=== PATIENT | female | born 2005 | race Caucasian/White ===

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

== ENCOUNTER 2025-04-28 10:51 | Emergency (ER) | payer MEDICAID, SELFPAY ==
[2025-04-28 10:52] VITALS: BP 103/64; PULSE 87; RESP 17; TEMP 36.8; O2SAT 99; BMI 51.5
--- NOTE | 2025-04-28 11:06 | W.ED.ABDPA2 ---
HPI - Abdominal Pain General: Chief Complaint: Nausea/Vomiting/Diarrhea Stated Complaint: back pain, vomiting Time Seen by Provider: 04/28/25 10:53 History of Present Illness: 18-year-old male presents emergency room with complaint of back pain vomiting. No recent trauma. Relates most of her pain in the lower lumbar region. No difficulty with numbness pain or weakness into her lower extremities no saddle paresthesias no urinary retention or fecal incontinence. Denies dysuria urgency or frequency does say that when she urinated back pain was slightly worse. No fever sweats or chills. At times the pain will radiate down her legs but she has no loss of sensation or function of the lower extremities. No previous back injuries or surgeries. Associated Symptoms: Denies chills, dysuria and fever(s) Related Data Home Medications ?Medication ?Instructions ?Recorded ?Confirmed escitalopram oxalate 10 mg tablet 10 mg PO DAILY 04/28/25 04/28/25 ibuprofen 200 mg tablet (Advil) 200 mg PO Q6H PRN Fever Or Pain 04/28/25 04/28/25 omeprazole 20 mg-sodium 1 cap PO DAILY PRN Nausea 04/28/25 04/28/25 bicarbonate 1.1 gram capsule (Zegerid OTC) tacrolimus 0.1 % topical ointment See Rx Instructions .Route .COMPLEX 04/28/25 04/28/25 tirzepatide (weight loss) 2.5 2.5 mg SUBCUT Q7D 04/28/25 04/28/25 mg/0.5 mL subcutaneous pen injector (Zepbound) Previous Rx's ?Medication ?Instructions ?Recorded promethazine 25 mg tablet 25 mg PO Q6H PRN nausea and 04/28/25 vomiting #20 tabs Allergies Allergy/AdvReac Type Severity Reaction Status Date / Time No Known Allergies Allergy Verified 04/28/25 10:56 Review of Systems Const: Denies: fever(s) or chills Card: Denies: chest pain Resp: Denies: dyspnea GI: Denies: abdominal pain : Denies: dysuria, urinary frequency or urinary urgency Musc: Denies: neck pain or back pain Skin/Breast: Denies: rash Physical Exam Const: GENERAL APPEARANCE: cooperative ORIENTATION/CONSCIOUSNESS: Yes awake, Yes oriented to person, Yes oriented to place and Yes oriented to time HENMT: COMMON NORMALS: normocephalic, atraumatic and hearing grossly normal bilaterally HEAD & SCALP: normocephalic and atraumatic Resp: COMMON NORMALS: normal respiratory effort, No retractions, No use of accessory muscles and clear to auscultation bilaterally AUSCULTATION: clear to auscultation bilaterally Cardio: COMMON NORMALS: regular rate, regular rhythm and No murmurs present (Cardio) RATE: regular rate RHYTHM: regular rhythm GI: COMMON NORMALS: Soft to palpation and No hepatosplenomegaly present AUSCULTATION: Yes normoactive bowel sounds PALPATION: Yes Soft to palpation, No Tenderness to palpation present (GI), No Guarding due to palpation present (GI) and Yes No hepatosplenomegaly present Extremity: COMMON NORMALS: normal to inspection, capillary refill normal, no clubbing, cyanosis or edema, no calf tenderness and no pedal edema Neuro: SENSORIUM/ORIENTATION: Yes oriented to person, Yes oriented to place and Yes oriented to time Skin: COMMON NORMALS: no rashes or lesions noted GENERAL SKIN EXAM: no rashes or lesions noted Course Vital Signs: Vital signs: Vital Signs Temperature 97.8 F 04/28/25 14:23 Pulse Rate 89 04/28/25 14:23 Respiratory Rate 18 04/28/25 14:23 Blood Pressure 101/67 04/28/25 14:23 Pulse Oximetry 99 04/28/25 14:23 Oxygen Delivery Me thod Room Air 04/28/25 10:52 MDM - Abdominal Pain Medical Decision Making CBC and chemistries are normal. He did have a few red blood cells in his urine however the CT did not show any significant abnormality no sign of nephrolithiasis. CT did show signs of mesenteric lymphadenitis. Discharge patient home promethazine to use as needed Tylenol ibuprofen as needed for any worsening or change return to the emergency room. Follow-up with primary care to have your urine repeated sometime in the next few weeks Lab Data 04/28/25 11:09 04/28/25 11:09 Labs/Radiology: Radiology Impressions Abdomen/Pelvis CT 04/28/25 12:37 IMPRESSION: 1. No renal obstruction or perinephric stranding. 2. Normal appendix. 3. No GI tract obstruction. 4. There are a few very tiny central mesenteric and RIGHT lower quadrant lymph nodes. These can be noted with mesenteric adenitis. No pathologically enlarged nodes. Laboratory Results WBC 9.22 10^3/uL (4.5-13.0) 04/28/25 11:09 RBC 4.94 10^6/uL (3.85-5.65) 04/28/25 11:09 Hgb 12.60 g/dL (12.4-14.8) 04/28/25 11:09 Hct 41.0 % (36-47) 04/28/25 11:09 MCV 83.0 fl (85-98) L 04/28/25 11:09 MCH 25.5 pg (27-33) L 04/28/25 11:09 MCHC 30.7 g/dL (30-55) 04/28/25 11:09 RDW 15.6 % (12.1-15.1) H 04/28/25 11:09 Plt Count 431 10^3/cmm (157-399) H 04/28/25 11:09 MPV 10.6 fL (7.4-10.4) H 04/28/25 11:09 Neut % (Auto) 70.9 % 04/28/25 11:09 Lymph % (Auto) 20.3 % 04/28/25 11:09 [place] % (Auto) 7.0 % 04/28/25 11:09 Eos % (Auto) 1.5 % 04/28/25 11:09 Baso % (Auto) 0.2 % 04/28/25 11:09 Neut # (Auto) 6.53 10^3/uL (1.8-8.0) 04/28/25 11:09 Lymph # (Auto) 1.9 10^3/uL (1.5-6.5) 04/28/25 11:09 [place] # (Auto) 0.7 10^3/uL (0.2-0.9) 04/28/25 11:09 Eos # (Auto) 0.1 10^3/uL (0.0-0.8) 04/28/25 11:09 Baso # (Auto) 0.0 10^3/uL (0.0-0.1) 04/28/25 11:09 Nucleated RBC % (auto) 0 % 04/28/25 11:09 Nucleated RBCs # 0.0 /100WBC 04/28/25 11:09 Sodium 138 mmol/L (136-145) 04/28/25 11:09 Potassium 3.9 mmol/L (3.5-5.1) 04/28/25 11:09 Chloride 104 mmol/L (98-107) 04/28/25 11:09 Carbon Dioxide 22 mmol/L (22-29) 04/28/25 11:09 Anion Gap 15.9 (5-19) 04/28/25 11:09 BUN 10 mg/dL (6-20) 04/28/25 11:09 Creatinine 0.7 mg/dL (0.5-0.9) 04/28/25 11:09 GFR Calculation 107.8 mL/min (90-130) 04/28/25 11:09 Glucose 94 mg/dL (65-115) 04/28/25 11:09 Calculated Osmolality 285 mOsm/kg (285-295) 04/28/25 11:09 Calcium 9.0 mg/dL (8.5-10.5) 04/28/25 11:09 Total Bilirubin 0.3 mg/dL (0.15-1.2) 04/28/25 11:09 AST 18 U/L (0-32) 04/28/25 11:09 ALT 26 U/L (0-33) 04/28/25 11:09 Alkaline Phosphatase 86 U/L (35-105) 04/28/25 11:09 Total Protein 7.4 g/dL (6.6-8.7) 04/28/25 11:09 Albumin 4.2 g/dL (3.5-5.2) 04/28/25 11:09 Globulin 3.2 g/dL (1.3-4.6) 04/28/25 11:09 Lipase 32 U/L (13-60) 04/28/25 11:09 HCG, Qual Negative (Negative) 04/28/25 11:09 Urine Color Yellow (Yellow) 04/28/25 12:08 Urine Appearance Cloudy (CLEAR) A 04/28/25 12:08 Urine pH 6.0 (5-7) 04/28/25 12:08 Ur Specific [place] 1.012 (1.005-1.030) 04/28/25 12:08 Urine Protein Negative (Negative) 04/28/25 12:08 Urine Glucose (UA) Negative (Normal) 04/28/25 12:08 Urine Ketones Negative (Negative) 04/28/25 12:08 Urine Blood Non-haemolysed trace (Negative) 04/28/25 12:08 Urine Nitrate Negative (Negative) 04/28/25 12:08 Urine Bilirubin Negative (Negative) 04/28/25 12:08 Urine Urobilinogen 0.2 mg/dL (Negative) 04/28/25 12:08 Ur Leukocyte Esterase Trace (Negative) A 04/28/25 12:08 Urine RBC 6-10 /hpf (0-2) 04/28/25 12:08 Urine WBC 0-5 /hpf (0-5) 04/28/25 12:08 Ur Squamous Epith Cells 6-10 /hpf (0-5) 04/28/25 12:08 Amorphous Sediment Not Reportable 04/28/25 12:08 Urine Bacteria 4+ /hpf (NONE) H 04/28/25 12:08 Hyaline Casts 2.87 /lpf 04/28/25 12:08 All radiology interpretation(s) finalized by discharge Discharge Plan Discharge Patient Disposition: Home Clinical Impression: Acute mesenteric lymphadenitis Condition: Stable Prescriptions: New promethazine 25 mg tablet 25 mg PO Q6H PRN (Reason: nausea and vomiting) Qty: 20 0RF No Action tacrolimus 0.1 % ointment See Rx Instructions .ROUTE .COMPLEX Rx Instructions: apply a thin layer TO THE affected area(s) TWICE DAILY; RUB in gently and completely ibuprofen [Advil] 200 mg Tablet 200 mg PO Q6H PRN (Reason: Fever Or Pain) escitalopram oxalate 10 mg tablet 10 mg PO DAILY omeprazole-sodium bicarbonate [Zegerid OTC] 20-1.1 mg-gram Capsule 1 cap PO DAILY PRN (Reason: Nausea) Zepbound 2.5 mg/0.5 mL pen injector 2.5 mg SUBCUT Q7D Discharge Orders: Discharge ED (Routine); Ordered 04/28/25 Ordered By: Herberth Hernandez Referrals: Phong Smith MD [Primary Care Provider, Family Practice] Discharge Diet: Clear Liquid Discharge Activity: Increase activity as tolerated Patient Instructions: Mesenteric Adenitis (ED), Opioid Safety, Pain Management, Patient Portal & Joseph Instructions Activity Restrictions/Additional Instructions: [facility]. It is very important that you follow up as instructed or that you return to the Emergency Department should you have concerns or if your condition changes or worsens in any way. Emergency department visits are focused on emergent conditions, in some cases you may require further evaluation on an outpatient basis. You were seen in the emergency room with abdominal discomfort your white count was normal there were a few red blood cells in your urine however CT did not show any stones there was no sign of a bladder infection. CT did show some inflamed lymph nodes associated with a process called mesenteric lymphadenitis this is thought to be a self-limiting viral infection. No further intervention is needed recommend clear liquid diet advance as tolerated you are also given promethazine to use as needed for nausea. (Please note that included in your discharge packet is information concerning opioid safety and pain management. This information is given to all patients were discharged from the ER regardless of their discharge diagnosis or the medicines they usually take or are prescribed.) Print Language: Kinyarwanda Coding Level of Care Code ED Control Panel Builder for Tramaine Agudelo
[2025-04-28] MEDS: ondansetron 2 mg/ML SDV 2 mL 4 MG IVP (11:13)
[2025-04-28 11:14] LABS: Hematocrit 41.0 % (36-47); Hemoglobin 12.60 g/dL (12.4-14.8); Mean Corpuscular HGB Conc 30.7 g/dL (30-55); Mean Corpuscular Hemoglobin 25.5 pg (27-33); Mean Corpuscular Volume 83.0 fl (85-98); Nucleated Red Blood Cells % 0 %; Platelet Count 431 10^3/cmm (157-399); Red Blood Count 4.94 10^6/uL (3.85-5.65); White Blood Count 9.22 10^3/uL (4.5-13.0)
[2025-04-28] MEDS: orphenadrine 30 mg/mL Inj 2 mL 60 MG IM (11:23)
[2025-04-28] MEDS: methylPREDNISolone sod succ 125 mg/2 mL INJ IVP (11:24)
[2025-04-28 11:26] LABS: HCG, Serum Qual Negative (Negative)
[2025-04-28 11:32] LABS: Alanine Aminotransferase 26 U/L (0-33); Albumin Level 4.2 g/dL (3.5-5.2); Alkaline Phosphatase 86 U/L (35-105); Anion Gap 15.9 (5-19); Aspartate Amino Transferase 18 U/L (0-32); Blood Urea Nitrogen 10 mg/dL (6-20); Calcium 9.0 mg/dL (8.5-10.5); Carbon Dioxide 22 mmol/L (22-29); Chloride 104 mmol/L (98-107); Globulin 3.2 g/dL (1.3-4.6); Glucose 94 mg/dL (65-115); Lipase 32 U/L (13-60); Osmolality Calculated 285 mOsm/kg (285-295); Potassium 3.9 mmol/L (3.5-5.1); Sodium 138 mmol/L (136-145); Total Protein 7.4 g/dL (6.6-8.7)
[2025-04-28 12:20] LABS: Glucose Urine UA Negative (Normal); Nitrate Urine Negative (Negative); Specific Gravity, Urine 1.012 (1.005-1.030)
--- OUTSIDE RECORDS SUMMARY | 2025-04-28 12:20 | XMS_ITS | Data Portability ---
Author Organization NISA Boyce [facility], [place], [facility] Address [address] [address] Care Team Providers Care Mastic Man Name Role Phone RAUL SMITH Primary Care Provider Assessment Encounter Date Assessment Date Assessment LastModified by Organization Details LastModified Time 04/07/2025 04/07/2025 19-year-old female with a history of atopic dermatitis presenting with a dry spot on the left eyelid and a request for weight loss medication. The dry spot resembles atopic dermatitis but is localized. Given the patient's elevated body mass index, exploring non-injectabl e weight loss solutions is recommended. [email or web address] Not available 04/07/2025 10:07:20 Plan of Treatment Reminders Order Date Submit Date Provider Last Modified By Organization Details Last Modified Time Details Appointments OFFICE VISIT 15 2024 03:00P M Raul Smith MD Not available Not available Not available Lab urinalysi s, dipstick 2024 025 [facility] [address] [place] [address], [address], 01/24/2025 18:43:51 culture, urine 2024 025 [employer] [facility], [address] [place] [address] [address], [place], [address], 01/27/2025 03:07:48 culture, urine 2024 025 [employer] [facility], [address] [place] [address] 248, [address], [place], [address], 01/21/2025 12:25:30 urinalysi s, dipstick 2024 025 [email or web address] [facility] ([facility]), [address] [place], [address], 01/17/2025 17:36:41 streptoco ccus group A Ag screen [address] [facility] ([facility]), [address] [place], [address], 12/30/2024 14:10:13 CBC 2024 025 [facility], [address] [facility], [facility] 1, [place], [address], 09/07/2024 17:41:09 CMP, serum or plasma 2024 025 [employer] [facility], [address] [place] [address] 248, [address], [place], [address], 09/09/2024 05:24:29 lipid panel, serum 2024 025 [employer] [facility], [address] [place] [address] 248, [address], [place], [address], 09/09/2024 05:24:28 Referral ophthalmic nurse referral 2024 025 [email or web address] Not available 09/19/2024 17:13:11 Procedures None recorded. Surgeries None recorded. Imaging None recorded. Medication Orders Zepbound 2.5 mg/0.5 mL subcutane ous pen injector 2024 025 [facility] [place], [address] [place], [address], 04/07/2025 17:23:26 Elidel 1 % topical cream 2024 [facility] [place], [address] [place], [address], 04/07/2025 10:09:53 Bactrim DS 800 mg-160 mg tablet 2024 [id number] [address], [address], 02/07/2025 05:01:30 nitrofura ntoin monohydra te/macroc rystals 100 mg capsule 2024 [id number], [address] [facility] [place], [address], 01/24/2025 18:27:38 fluticaso ne propionat e 50 mcg/actua tion nasal spray,brandyn pension 2024 [facility], [address], [place], [address], 04/07/2025 09:48:14 cetirizin e 10 mg tablet 2024 [facility] 15, [address], [place], [address], 04/07/2025 09:47:52 escitalop matthew 10 mg tablet 2024 [facility], [address], [place], [address], 09/07/2024 17:04:50 Patient TargetsNo targets recorded. Patient Instructions Encounter Date Encounter Id Patient Instructions Last Modified By Organization Details Last Modified Time 04/07/2025 [id number] - Apply Elidel t o the dry spot on your eyelid twice a day. Be careful not to get it in your eye. - Start Zepbound injections at 2.5 mg once a week. Monitor for any side effects like nausea or stomach upset. - Follow up in one month to see how the treatments are working. [email or web address] Not available 04/07/2025 10:07:22 Discussed the us e of Elidel for the eyelid condition and weight loss strategies. Emphasized cautious application of Elidel to avoid ocular exposure. For weight management, I explained the benefits and side effects of Zepbound, including potential nausea and gastrointestinal symptoms. The patient was informed about the gradual dose increase and the effectiveness of this approach compared to oral alternatives. A follow-up appointment was recommended in a month to assess progress and adjust treatment as necessary. 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 gy to food Referring Physician: Raul Smith, Family Medicine, Encounter Date: 09/07/2024 Results Created Date Observation Date Name Description Value Unit Range Abnormal Flag Note LastModifiedBy Organization Detail LastModifiedTime 09/08/1909/07/2024 CBC WBC 9.0 x10 4.0-10 .5 Not Available [facility] [address], [place], [address], 09/07/2024 17:41:09 09/08/19 25 09/07/2024 CBC RBC 4.47 x10 3.50-5 .50 Not Available [facility] [address], [place], [address], 09/07/2024 17:41:09 09/08/19 25 09/07/2024 CBC HGB 12.3 g/dL 12.0-1 6.0 Not Available [facility] [address], [place], [address], 09/07/2024 17:41:09 09/08/19 25 09/07/2024 CBC HCT 37.0 % 37.0-4 7.0 Not Available [facility] [address], [place], [address], 09/07/2024 17:41:09 09/08/1909/07/2024 CBC MCV 82.7 fL 80.0-9 9.9 Not Available [facility] [address] [facility] 1, [place], [address], 09/07/2024 17:41:09 09/08/19 25 09/07/2024 CBC MCH 27.4 pg 27.0-3 2.0 Not Available [facility] [address] [facility], [place], [address], 09/07/2024 17:41:09 09/08/1909/07/2024 CBC MCHC 33.1 g/dL 32.0-3 6.0 Not Available [facility] [address] [facility] 1, [place], [address], 09/07/2024 17:41:09 09/08/1909/07/2024 CBC RDW 15.2 % 11.5-1 4.5 high Not Available [facility] [address] [facility] 1, [place], [address], 09/07/2024 17:41:09 09/08/1909/07/2024 CBC plt 420.6 x10 140.0- 451.0 Not Available [facility] [address] [place] [facility], [place], [address], 09/07/2024 17:41:09 09/08/1909/07/2024 CBC lymphocytes % 35.0 % 20.0-5 0.0 Not Available [facility] [address] [place] [address] [facility] 1, [place], [address], 09/07/2024 17:41:09 09/08/1909/07/2024 CBC granulcytes % 53.7 % 30.0-7 0.0 Not Available [facility] [address] [facility] 1, [place], [address], 09/07/2024 17:41:09 09/08/19 25 09/07/2024 CBC monocytes % 9.0 % 2.0-16 .0 Not Available [facility] [address] [facility] 1, [place], [address], 09/07/2024 17:41:09 09/08/19 25 09/07/2024 CBC granulcytes# 4.8 x10 Not Kathia ilable [facility] [address] [facility] 1, [place], [address], 09/07/2024 17:41:09 09/08/19 25 09/07/2024 CBC lymphocytes # 3.1 x10 Not Available [facility] [address] [facility] 1, [place], [address], 09/07/2024 17:41:09 09/08/19 25 09/07/2024 CBC monocytes # 0.8 x10 Not Avai lable [facility] [address] [facility] 1, [place], [address], 09/07/2024 17:41:09 09/08/19 25 09/09/2024 LIPID PANEL , STAND BLAINE cholesterol, total 166 mg/dL <170 normal Not Available [facility] [address] [place], [address], 09/09/2024 05:24:28 09/08/19 25 09/09/2024 LIPID PANEL , STAND BLAINE HDL cholesterol 50 mg/dL >45 normal Not Available [facility] [email or web address] [facility] [address] [place], [address], 09/09/2024 05:24:28 09/08/19 25 09/09/2024 LIPID PANEL , STAND BLAINE triglyceride s 121 mg/dL <90 high Not Available [facility] [address] [place], [address], 09/09/2024 05:24:28 09/08/19 25 09/09/2024 LIPID PANEL , STAND BLAINE LDL-choleste rol 94 mg/dL _(kiki c) <110 normal LDL-C is now calcu lated using the Stefany n-Hop kins chuck russell n, which is a valid ated novel metho d provi ding saad r accur acy than the Fried juliann equat ion in the estim ation of LDL-C . Stefany sosa SS et al. SONIA. 2013; 310(1 9): 2061- 2068 (http ://ed ucati on.Qu eParachute. com/f aq/FA Q164) Not Available [employer] [address], [address], 09/09/2024 05:24:28 09/08/19 25 09/09/2024 LIPID PANEL , STAND BLAINE chol/HDLC ratio 3.3 (calc ) <5.0 normal Not Available [address], [address], 09/09/2024 05:24:28 09/08/1909/09/2024 LIPID PANEL , STAND BLAINE non HDL cholesterol 116 mg/dL _(kiki c) <120 normal For patie nts with diabe vishal plus 1 major ASCVD risk facto r, treat ing to a non-H DL-C goal of <100 mg/dL (LDL- C of <70 mg/dL ) is consi dered a thera peazra c optio n. Not Available [address], [address], 09/09/2024 05:24:28 09/08/1909/09/2024 COMPR EHENS MAHI METAB OLIC PANEL glucose 83 mg/dL 65-99 normal Fasti ng refer ence inter cuate Not Available [facility] [address] [place] [address] [place], [address], 09/09/2024 05:24:29 09/08/19 25 09/09/2024 COMPR EHENS MAHI METAB OLIC PANEL urea nitrogen (BUN) 10 mg/dL 7-20 normal Not Available [address], [address], 09/09/2024 05:24:29 09/08/19 25 09/09/2024 COMPR EHENS MAHI METAB OLIC PANEL creatinine 0.58 mg/dL 0.50-0 .96 normal Not Available [address], [address], 09/09/2024 05:24:29 09/08/19 25 09/09/2024 COMPR EHENS MAHI METAB OLIC PANEL eGFR 134 mL/mi n/1.7 3m2 > or = 60 normal Not Available [address], [address], 09/09/2024 05:24:29 09/08/19 25 09/09/2024 COMPR EHENS MAHI METAB OLIC PANEL BUN/creatini ne ratio SEE NOTE: (calc ) 6-22 Not Repor ant: BUN and Creat inine are withi n refer ence range . Not Available [address], [address], 09/09/2024 05:24:29 09/08/19 25 09/09/2024 COMPR EHENS MAHI METAB OLIC PANEL sodium 138 mmol/ L 135-14 6 normal Not Available [address], [address], 09/09/2024 05:24:29 09/08/19 25 09/09/2024 COMPR EHENS MAHI METAB OLIC PANEL potassium 4.2 mmol/ L 3.8-5. 1 normal Not Available [address], [address], 09/09/2024 05:24:29 09/08/19 25 09/09/2024 COMPR EHENS MAHI METAB OLIC PANEL chloride 103 mmol/ L 98-110 normal Not Available [address], [address], 09/09/2024 05:24:29 09/08/19 25 09/09/2024 COMPR EHENS MAHI METAB OLIC PANEL carbon dioxide 28 mmol/ L 20-32 normal Not Available [address], [address], 09/09/2024 05:24:29 09/08/19 25 09/09/2024 COMPR EHENS MAHI METAB OLIC PANEL calcium 9.4 mg/dL 8.9-10 .4 normal Not Available [address], [address], 09/09/2024 05:24:29 09/08/19 25 09/09/2024 COMPR EHENS MAHI METAB OLIC PANEL protein, total 7.1 g/dL 6.3-8. 2 normal Not Available [address], [address], 09/09/2024 05:24:29 09/08/19 25 09/09/2024 COMPR EHENS MAHI METAB OLIC PANEL albumin 4.3 g/dL 3.6-5. 1 normal Not Available [address], [address], 09/09/2024 05:24:29 09/08/19 25 09/09/2024 COMPR EHENS MAHI METAB OLIC PANEL globulin 2.8 g/dL_ (calc ) 2.0-3. 8 normal Not Available [address], [address], 09/09/2024 05:24:29 09/08/19 25 09/09/2024 COMPR EHENS MAHI METAB OLIC PANEL albumin/glob ulin ratio 1.5 (calc ) 1.0-2. 5 normal Not Available [address], [address], 09/09/2024 05:24:29 09/08/19 25 09/09/2024 COMPR EHENS MAHI METAB OLIC PANEL bilirubin, total 0.3 mg/dL 0.2-1. 1 normal Not Available [place] [address] [place], [address], 09/09/2024 05:24:29 09/08/19 25 09/09/2024 COMPR EHENS MAHI METAB OLIC PANEL alkaline phosphatase 73 U/L 36-128 normal Not Available [place] [address] [place], [address], 09/09/2024 05:24:29 09/08/19 25 09/09/2024 COMPR EHENS MAHI METAB OLIC PANEL AST 23 U/L 12-32 normal Not Available [place] [address] [address] [place], [address], 09/09/2024 05:24:29 09/08/19 25 09/09/2024 COMPR EHENS MAHI METAB OLIC PANEL ALT 45 U/L 5-32 high Not Available [address], [address], 09/09/2024 05:24:29 12/31/19 25 12/30/2024 strep tococ cus group A Ag scree n Strep negati ve Not Available [facility] ([facility]) [address] [place], [address], 12/30/2024 13:58:37 01/18/20 25 01/21/2025 CULTU RE, URINE , ROUTI NE culture, urine, routine SEE NOTE abnormal CULTU RE, URINE , ROUTI NE Micro Numbe r: [id number] Test Statu s: Final Speci men Sourc e: Urine , clean catch Speci men Quali ty: Adequ ate Resul t: Great er than 100,0 00 CFU/m L of Prote us mirab ilis COMME NT: Addit ional non-p redom inati ng organ ism(s ) isola ant. These organ isms, commo nly found on exter nal and inter nal genit jermaine, are consi dered colon izers . No furth er testi ng perfo rmed. P.alessia abili s ----- ----- ----- - INT EMILY AMOX/ CLAVU LANAT E S <=2 AMP/S ULBAC BAUTISTA S <=2 CEFAZ SEVERINO I 4 CEFEP YANN S <=0.1 2 CEFTA ZIDIM E S <=0.5 CEFTR IAXON E S <=0.2 5 CIPRO FLOXA SUELLEN S <=0.0 6 GENTA MICIN S <=1 LEVOF LOXAC IN S <=0.1 2 MEROP ENEM S <=0.2 5 NITRO FURAN TOIN R 128 PIP/T AZOBA CTAM S <=4 TRIME THOPR IM/HOLLAND LFA S <=20 S = Susce ptibl e I = Inter media te R = Resis tant NS = Not susce ptibl e SDD = Susce ptibl e Dose Depen dent * = Not Teste d NR = Not Repor ant NN = See Thera py Comme nts Not Available [facility] [address] [place], [address], 01/21/2025 12:25:30 01/18/20 25 01/17/2025 urina lysis , dipst ick Leukocytes Trace Not Available [facility] ([facility]) [address] [place] [address], [address], 01/17/2025 17:18:12 01/18/20 25 01/17/2025 urina lysis , dipst ick Nitrite negati ve Not Available [facility] ([facility]) [address] [place] [address], [address], 01/17/2025 17:18:12 01/18/20 25 01/17/2025 urina lysis , dipst ick Urobilinogen .2 Not Available [facility] ([facility]) [address] [place], [address], 01/17/2025 17:18:12 01/18/20 25 01/17/2025 urina lysis , dipst ick Protein Trace Not Available [facility] ([facility]) [address] [place], [address], 01/17/2025 17:18:12 01/18/20 25 01/17/2025 urina lysis , dipst ick pH 7.5 Not Available [facility] ([facility]) [address] [place], [address], 01/17/2025 17:18:12 01/18/20 25 01/17/2025 urina lysis , dipst ick Blood Modera te Not Available [facility] ([facility]) [address] [place], [address], 01/17/2025 17:18:12 01/18/20 25 01/17/2025 urina lysis , dipst ick Specific [place] 1.020 Not Available [facility] ( [facility]) [address] [place], [address], 01/17/2025 17:18:12 01/18/20 25 01/17/2025 urina lysis , dipst ick Ketone Negati ve Not Available [facility] ([facility]) [address] [place], [address], 01/17/2025 17:18:12 01/18/20 25 01/17/2025 urina lysis , dipst ick Bilirubin Negati ve Not Available [facility] ([facility]) [address] [place], [address], 01/17/2025 17:18:12 01/18/20 25 01/17/2025 urina lysis , dipst ick Glucose Negati ve Not Available [facility] ([facility]) [address] [place], [address], 01/17/2025 17:18:12 01/25/20 25 01/24/2025 urina lysis , dipst ick Leukocytes Modera te Not Available [facility] ([facility]) [address] [place], [address], 01/24/2025 18:21:45 01/25/20 25 01/24/2025 urina lysis , dipst ick Nitrite negati ve Not Available [facility] ([facility]) [address] [place], [address], 01/24/2025 18:21:45 01/25/20 25 01/24/2025 urina lysis , dipst ick Urobilinogen .2 Not Available [facility] ([facility]) [address] [place], [address], 01/24/2025 18:21:45 01/25/20 25 01/24/2025 urina lysis , dipst ick Protein 100 Not Available [facility] ([facility]) [address] [place], [address], 01/24/2025 18:21:45 01/25/20 25 01/24/2025 urina lysis , dipst ick pH 6.5 Not Available [facility] ([facility]) [address] [place], [address], 01/24/2025 18:21:45 01/25/20 25 01/24/2025 urina lysis , dipst ick Blood Large Not Available [facility] ([facility]) [address] [place], [address], 01/24/2025 18:21:45 01/25/20 25 01/24/2025 urina lysis , dipst ick Specific [place] 1.020 Not Available [facility] ( [facility]) [address] [place], [address], 01/24/2025 18:21:45 01/25/20 25 01/24/2025 urina lysis , dipst ick Ketone Negati ve Not Available [facility] ([facility]) [address] [place], [address], 01/24/2025 18:21:45 01/25/20 25 01/24/2025 urina lysis , dipst ick Bilirubin Negati ve Not Available [facility] ([facility]) [address] [place], [address], 01/24/2025 18:21:45 01/25/20 25 01/24/2025 urina lysis , dipst ick Glucose Negati ve Not Available [facility] ([facility]) [address] [place], [address], 01/24/2025 18:21:45 01/25/20 25 01/24/2025 urina lysis , dipst ick Appearance Clear Not Available [facility] ( [facility] [address] [place], [address], 01/24/2025 18:21:45 01/25/20 25 01/24/2025 urina lysis , dipst ick Color Pale Yellow Not Available [facility] ([facility]) [address] [place], [address], 01/24/2025 18:21:45 01/26/20 25 01/27/2025 CULTU RE, URINE , ROUTI NE culture, urine, routine SEE NOTE CULTU RE, URINE , ROUTI NE Micro Numbe r: [id number] Test Statu s: Final Speci men Sourc e: Urine Speci men Quali ty: Adequ ate Resul t: Mixed genit al herminia isola ant. These super ficia l bacte eduardo are not indic ative of a urina ry tract infec tion. No furth er organ ism ident ifica tion is warra nted on this speci men. If clini audi indic ated, recol lect clean -catc h, mid-s tream urine and trans abisai immed iatel y to Urine Cultu re Trans port Tube. Not Available [address] [address] [place], [address], 01/27/2025 03:07:48 Result Notes None recorded. Problems Name Problem SNOMED Code Status Onset Date Resolution Date Notes Provider Name and Address Organization Details Recorded Time Anxiety disorder 471196757 Active 2023 [employer] rodriguez [facility], KatieL[facility] 12:36:01 Major depressi ve disorder 613313869 Active 2023 [employer] [facility], KatieLJairoC[facility] 12:37:15 Low back pain 031073584 Active 2023 [employer] [facility], KatieLJ[facility] 12:36:40 Attentio n deficit hyperact ivity disorder 042094990 Active 2023 [employer] rodriguez [facility], L.L.CJairo 12:36:19 Mood swings 01122567 Completed 202307/30/2024 Deyanira rodriguez [facility], KatieLJ[facility] 5 16:32:12 Carpal tunnel syndrome of right wrist 04839726425 9108 Completed 202307/30/2024 Deyanira rodriguez [facility], KatieLJairoC[facility] 16:31:36 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 16:31:57 Allergy to food 627450023 Active 2024 Raul Smith MD [address] [place] [address], [address], [facility] 17:02:46 Allergic rhinitis 32279084 Active 2024 Raul Smith MD [address] [place] [address], [address], [facility] 17:02:53 Insertio nal Achilles tendinop athy 747387983 Active 2024 Raul Smith MD [address] [place] [address], [address], [facility] 17:08:00 Atopic dermatit is 02956685 Active 2024 Raul Smith MD [address] [place] [address], [address], [facility] 5 10:02:36 Body mass index 40+ - severely obese 225876316 Active 2024 Raul Smith MD [address] [place] [address], [address], [facility] 10:03:41 Problem Notes None recorded. Medical Equipment None Reported. Allergies Allergen ID Allergen Name Allergen Category Reaction Reaction Severity Criticality Documentation Date Start Date Code Code System Note Provider Name and Address Organization Details Recorded Time 78106 shrimp allergeni c extract food Not available Not available Not available 07/18/2024 49628 2 RxNorm RAF rodriguez, [facility] 12:38:31 No known drug allergies Medications Name Sig Start Date Stop Date Status Note LastModified by Organization Details LastModified Time cetirizine 10 mg tablet Take 1 tablet every day by oral route. 04/07 completed Not Available Not Available Not Available azithromyc in 250 mg tablet TAKE 2 TABLETS BY MOUTH ON DAY 1, AND THEN TAKE 1 TABLET BY MOUTH ONCE A DAY ON DAY 2 THROUGH DAY 5 07/27 completed Not Available Not Available Not Available meloxicam 15 mg tablet Take 1 tablet every day by oral route. 05/06 completed Not Available Not Available Not Available Effexor XR 37.5 mg capsule,ex tended release Take 1 capsule every day by oral route. 05/06 completed pt states that she does not like the way they work Not Available Not Available Not Available Elidel 1 % topical cream APPLY A THIN LAYER TO THE AFFECTED AREA(S) BY TOPICAL ROUTE 2 TIMES PER DAY ; RUB IN GENTLY AND COMPLETE LY 2024 active Not Available Not Available Not Avai lable meloxicam 7.5 mg tablet TAKE 1 TABLET BY MOUTH ONCE DAILY NEEDED 05/06 completed Not Available Not Available Not Available amoxicilli n 875 mg tablet Take 1 tablet every 12 hours by oral route for 10 days. 07/07 completed Not Available Not Available Not Available tacrolimus 0.1 % topical ointment APPLY A THIN LAYER TO THE AFFECTED AREA(S) BY TOPICAL ROUTE 2 TIMES PER DAY ; RUB IN GENTLY AND COMPLETE LY 2024 active Not Available Not Available Not Avai lable hydroxyzin e HCl 25 mg tablet Take 0.5 tablets 3 times a day by oral route as needed. 05/06 completed Not Available Not Available Not Available fluticason e propionate 50 mcg/actuat ion nasal spray,susp ension USE 1 SPRAY(S) IN EACH NOSTRIL ONCE DAILY 04/07 completed Not Available Not Available Not Available naproxen 500 mg tablet TAKE 1 TABLET BY MOUTH TWICE DAILY 09/07 completed Not Available Not Available Not Available Bactrim DS 800 mg-160 mg tablet Take 1 tablet every 12 hours by oral route for 7 days. 02/07 completed Not Available Not Available Not Available escitalopr am 10 mg tablet TAKE 1 TABLET BY MOUTH EVERY DAY active Not Available Not Available No t Available nitrofuran toin monohydrat e/macrocry stals 100 mg capsule TAKE 1 CAPSULE BY MOUTH EVERY 12 HOURS FOR 5 DAYS active Not Available Not Available No t Available Zepbound 2.5 mg/0.5 mL subcutaneo us pen injector inject 2.5mg SUBCUTAN EOUSLY every week active Not Available Not Available No t Available Vitals Date Recorded Body height Body mass index (BMI) Body mass index (BMI) [Percentile] Per age and sex Body weight Body temperature Respiratory rate Heart rate Oxygen saturation Oxygen saturation in Arterial blood by Pulse oximetry Systolic And Diastolic Provider Name and Address Organization Details Last Updated DateTime 5 163.83 cm 47 kg/m2 99.83 % 788438. 08 g 97.6 [degF] 18 /min 82 /min 99 % 99 % 112/66 mm[Hg] Igor Smith [facility] 5 16:43:08 Date Recorded Body height Body mass index (BMI) Body mass index (BMI) [Percentile] Per age and sex Body weight Body temperature Heart rate Oxygen saturation Oxygen saturation in Arterial blood by Pulse oximetry Systolic And Diastolic Provider Name and Address Organization Details Last Updated DateTime 5 163.83 cm 49.9 kg/m2 99.93 % 490991. 55 g 98.6 [degF] 102 /min 99 % 99 % 122/76 mm[Hg] Carleen Eckert [facility] 5 14:00:46 Date Recorded Body height Body mass index (BMI) [Percentile] Per age and sex Body mass index (BMI) Body weight Respiratory rate Oxygen saturation Oxygen saturation in Arterial blood by Pulse oximetry Heart rate Body temperature Systolic And Diastolic Provider Name and Address Organization Details Last Updated DateTime 5 163.83 cm 99.94 % 50.2 kg/m2 783597. 93 g 16 /min 98 % 98 % 104 /min 98.4 [degF] 124/80 mm[Hg] LILLY TAVERAS [facility] 5 17:25:03 Date Recorded Body height Body mass index (BMI) [Percentile] Per age and sex Body mass index (BMI) Body weight Oxygen saturation Oxygen saturation in Arterial blood by Pulse oximetry Heart rate Body temperature Systolic And Diastolic Provider Name and Address Organization Details Last Updated DateTime 163.83 cm 99.92 % 49.5 kg/m2 685488. 56 g 99 % 99 % 97 /min 98.7 [degF] 128/84 mm[Hg] Nanci Danielsabran [facility] LJairoLJairoCJairo 18:31:44 Date Recorded Body height Body mass index (BMI) [Percentile] Per age and sex Body mass index (BMI) Body weight Body temperature Oxygen saturation Oxygen saturation in Arterial blood by Pulse oximetry Heart rate Systolic And Diastolic Provider Name and Address Organization Details Last Updated DateTime 163.83 cm 99.94 % 50.7 kg/m2 434206. 71 g 98.1 [degF] 99 % 99 % 89 /min 128/82 mm[Hg] [facility] L[facility]LJ[facility] 09:41:38 Social History Question Answer Notes LastModified by [email or web address] ion Details LastModified Time Tobacco Smoking Status Never Smoker [facility] 04/07/2025 09:48:15 Are You Blind Or Do You Have Difficulty Seeing? No Information not available 07/15/2023 What Is Your Level Of Caffeine Consumption? Moderate Information not available 07/15/2023 Are You Deaf Or Do You Have Serious Difficulty Hearing? No Information not available 07/15/2023 What Type Of Diet Are You Following? REGULAR Information not available 07/15/2023 Which Of Your Hands Is Dominant? Right Information not available 07/15/2023 What Was The Date Of Your Most Recent Tobacco Screening? 04/07/2025 [email or web address] Information not available 04/07/2025 Have You Recently Traveled Abroad? No Information not available 07/15/2023 Do You Have Difficulty Walking Or Climbing Stairs? No Information not available 07/15/2023 Do You Have Any Dietary Restrictions? No Information not available 07/15/2023 Sex: Unknown Functional Status Question Answer Note LastModified by Organizat ion Details LastModified Time Do you use any illicit or recreational drugs? No Information not available 07/15/2023 What is your level of alcohol consumption? None Information not available 07/15/2023 Are you currently employed? No Information not available 07/15/2023 Do you have transportation difficulties? No Information not available 07/15/2023 Are you able to walk independently without assistance or assistive devices? YESWOREST Information not available 07/15/2023 Do you have difficulty doing errands alone? No Information not available 07/15/2023 Are you able to care for yourself independently? Yes Information not available 07/15/2023 Do you have difficulty dressing, bathing, grooming, or toileting? No Information not available 07/15/2023 What is your exercise level? None Information not available 07/15/2023 Mental Status Question Answer Note LastModified by Organization D etails LastModified Time Do you have difficulty concentrating, remembering or making decisions? No Information no t available 07/15/2023 Family History Relationship Description Onset Age of this Age Resolved Age Notes LastModified by Organization Details LastModified Time Maternal Grandmother Diabetes mellitus [email or web address] Not available 2023 15:28:20 Father Motor vehicle accident in his 40's Not available 07/18/2024 12:35:38 Mother Drug abuse [email or web address] Not avail able 07/18/2024 12:41:49 Medical History No medical history recorded. Gynecological HistoryNo gynecological history recorded. Obstetrics History GPAL:G 0 P 0 0 0 0 Immunizations Vaccine Type Date Status Note Provider Nam e and Address Organization Details Recorded Time Influenza, split virus, quadrivalent, PF 06/04/2023 completed Not Available [employer] 09:36:54 Past Encounters Encounter ID Performer Location Encounter Start Date Encounter Closed Date Diagnosis/Indication Diagnosis SNOMED-CT Code Diagnosis ICD10 Code Diagnosis IMO Codes Diagnosis Note [id number] Raul Smith MD [facility] ([facility]) [address] [place] [id number] 5 07/15/2023 15:21:32 07/15/2023 18:08:59 Major depressive disorder 268483532 F32.9 Discussed options for treatment and the patient was open to starting Lexapro. Will follow-up in 1 month. Anxiety disorder 5569284 06 F41.9 Will consider adjunct if needed but will start with the SSRI Low back pain 879364625 M54.50 Brian options for low back pain and recommend daily stretching and exercises. But we will go ahead and proceed with physical therapy to help with overall improvemen t. [id number] Raul Smith MD [facility] ([facility]) [address] [place] [id number] 5 08/18/2023 11:51:08 08/18/2023 12:28:55 Pain in bilateral legs 1876890531 1016516 M79.604 M79.605 Pain is exacerbate d by standing and they be related to her back. Low back pain 167357131 M54.50 Commend the patient is having back pain rating down her legs and physical therapy should be extremely beneficial for them. Also anti-infla mmatory medication s with meloxicam as needed. Anxiety 07025665 F41.9 Has found the hydroxyzin e has been helpful and needs a refill on the medication . [id number] Raul Smith MD [facility] ([facility]) [address] [place] [phone] 5 12/08/2023 15:26:06 12/08/2023 16:44:35 Anxiety 52207175 F41.9 Will decrease the dose of hydroxyzin e to half tab and start Effexor. Attention deficit hyperactivity disorder 580903944 F90.9 Patient does express concerns and symptoms suggestive of ADHD. Will await full psychiatri c evaluation and their suggestion s for treatment. Mood swings 44878819 R45 .86 For the Effexor will help. Maintain follow-up with psychiatry . Low back pain 775646802 M54.50 Continue home stretches and exercises and use of meloxicam as needed. [id number] Raul Smith MD [facility] ([facility]) [address] [place] [phone] 5 05/06/2024 11:55:39 05/06/2024 12:43:00 Carpal tunnel syndrome of right wrist 9353298011 20498 G56.01 Possible carpal tunnel syndrome despite lack of physical exam findings given the patient's history. Discussed options and the patient would like to go ahead and proceed with nerve conduction study. Discussed treatment including night splints and exercises. Handout provided to the patient. [id number] MAGDA ROSA [facility] ([facility]) [address] [place] [address] [id number] 5 06/14/2024 09:44:57 06/14/2024 10:30:59 Sore throat 654022591 J02.9 Acute supp urative otitis media without spontaneous rupture of ear drum 98087423 H66.081 [id number] Raul Smith MD [facility] ([facility]) [address] [place], [place] [phone] 5 07/07/2024 11:41:28 07/12/2024 16:47:28 Costal chondritis 51166412 M94.0 Patient is expressing symptoms of costochond ritis. Will start naproxen to help with that. Viral uppe r respiratory tract infection 692252740 J06.9 Continue supportive care. Anticipate that this will continue to improve. [id number] JOHNNIE JEAN [facility] ([facility]) [address] [place], [place] [phone] 5 07/18/2024 12:30:06 07/18/2024 12:58:37 Acute sinusitis 21829621 J01.90 Depressive disorder 3548 9007 F32.9 Follows with counseling . [id number] MICHEAL LAW [employer] [facility] ([facility]) [address] [place], [place] [phone] 07/27/2024 09:48:44 07/27/2024 10:38:13 Intermittent palpitations 813845039 R00.2 Avoid caffeine. Patient will schedule appt to see Dr Smith for evaluation . [id number] Raul Smith MD [facility] ([facility]) [address] [place] [id number] 5 09/07/2024 16:17:15 09/07/2024 17:19:56 Allergy to food 678442231 T78.1XXA Will send referral for ophthalmic nurse to do full allergy testing. Allergic rhinitis 128875 04 J30.9 The patient's ear pain is likely related to her allergies and eustachian tube dysfunctio n. Start Flonase and Zyrtec. Major depr essive disorder 316592642 F32.9 Patient wanted to restart Lexapro. Insertiona l Achilles tendinopathy 940116841 M67.879 Discussed stretches and exercises to help with this. Anti-infla mmatory medication s such as ibuprofen. Adult heal th examination 745534772 Z00.00 We will check labs. Encouraged well-braydon aviva diet and regular exercise. [id number] MAGDA ROSA [facility] ([facility]) [address] [place] [address] 12/30/2024 13:46:26 12/30/2024 14:23:14 Sore throat 044296071 J02.9 02646 Drink plenty of fluids. May do saltwater gargles, use over the counter chlorasept ic spray, throat lozenges, warm tea with honey and eat popsicles for throat discomfort . If you develop throat swelling, difficulty swallowing , symptoms are worsening or rash return to clinic for further evaluation or PCP. Utilize OTC Tylenol or Ibuprofen for fever/pain /discomfor t. Patient verbalized understand ing of plan.Retur n to clinic if any changes, any worsening, any concerns. [id number] MAGDA ROSA [facility] ([facility]) [address] [place] [address] [id number] 5 01/17/2025 17:15:07 01/18/2025 10:15:28 Dysuria 44653443 R30.0 65231 Discussed to take antibiotic as prescribed until completedU rine culture ordered - will notify of any resultsEdu cated patient on increasing PO fluids of water, decreasing caffeine (coffee) and sugary drinks.Dis cussed importance of avoiding baths, scented soaps, douching, perfumes.M ay take OTC AZO for 1-2 days as box directs for burning sensation. Discussed if developmen t of abdominal pain, flank pain, fever, vomiting, worsening symptoms return to walk-in, PCP or ED for re-evaluat ion. Return to clinic if any changes, any worsening, any concernsPa tient verbalized understand ing of plan. [id number] MAGDA KNOWLES [facility] ([facility]) [address] [place] [phone] 5 01/24/2025 18:16:51 01/25/2025 09:43:29 Dysuria 27682398 R30.0 52195 Acute urin koko tract infection 453367220 N39.0 495293 UA results reviewed and discussed with pt. We will start antibiotic s. Pt will increase oral fluids. Return to office with no improvemen t or any problems.R eviewed last visit and cx. rx'd macrobid at last visit and this was resistant to the bacteria in the cx. Switched to bactrim [id number] Raul Smith MD [facility] ([facility]) [address] [place] [id number] 5 04/07/2025 09:34:45 04/07/2025 10:09:20 Atopic dermatitis 86818301 L20.9 44406151 - Prescribe topical Elidel to be applied to the affected eyelid twice daily, avoiding eye contact. Monitor for improvemen t. Body mass index 40+ - severely obese 280793688 E66.01 Z68.43 75205268 - Initiate Zepbound, starting at 2.5 mg weekly injection. Advise on side effects and follow-up in one month for dosage reassessme nt, aiming for maximum tolerated dose. Health Concerns Section Related Observation LastModified by Organization Detai ls LastModified Time None Recorded Concern Status LastModified by Organization Details LastModified Time None Recorded Advance Directives Directive None Recorded Payers Insurance Date Sequence Insurance Name Policy Number Policy Conner Covered Member ID Conner Member ID Guarantor Name 04/10/2025 [facility] (MEDICAID HMO) Feli Fajardo [id number] Feli Fajardo 04/04/2025 1 [facility] (MEDICAID HMO) Feli Fajardo [id number] Feli Fajardo Notes Date Note Type Note Provider Name and Address Organization Details Recorded Time 09/08/19 25 text/htm l Annual WellnessReported by PatientSocial/Behavioral HistoryFor diet and nutrition, patient reportshealthy diet. For fracture risk, patient reportsno history of fractures. For physical activity, patient reportsexercises on a regular basis. For additional lifestyle factors, patient reportsno tobacco useandno alcohol intake.Mental Status:For depression risk, patient reportsfeels sad, empty, or tearful ( of father),loss of interest in activities,sleep disturbances or insomnia, andloss of energybut reportsno thoughts of suicide.Functional AbilityFor hearing, patient reportsno loss of hearing. For vision, patient reportsno vision problems. Ear Pain Brief HPIReported by PatientHPIFor quality, patient reportsitchinganddischarge bloody (right ear). For severity, patient reportsinterferes with ability to sleepbut reportsno fever. For location, patient reportsbilateral. For onset/timing, patient reportsgradual onset (2 months). Patient here today for recheck of ear pain. He states that this has bothered him for approximately 2 months. Left > Right. Wants to possibly discuss some medications for allergies. Annual wellness check-up as well. Patient is concerned about food allergies and would like allergy testing. Patient is struggling with her depression and would like to restart medication. Patient is open to doing lab work today. The patient has been having pain at the base of their left heel that is worse with walking Raul Smith MD [address] [place], [phone], [facility] 09/11/2024 09:48:07 12/31/19 25 text/htm l ROS as noted in the [facility] walk in ptPt has a sore throat, hurts when swallowing on the right side that started yesterday. Denies any fever or known exposure to illness. MAGDA ROSA [address] [place], [address], [facility] 12/30/2024 14:22:16 01/18/20 25 text/htm l ROS as noted in the [facility] walk-in; PCP Dr. Smith Patient c/o urinary symptoms. Some discomfort with urination, urgency and frequency. He also states he's having some lower abdominal pain. Symptoms started today. MAGDA ROSA [address] [place], [address], [facility] 01/17/2025 17:56:31 01/25/20 25 text/htm l ROS as noted in the [facility] walk inx1 week urgency, frequency, painful urination- here 8/5 for same pt does feel symptoms mostly cleared up but are worsening [facility], [facility] [address] [place], [address], [facility] 01/24/2025 18:39:31 04/07/20 25 text/htm l Skin LesionReported by PatientHPIFor associated symptoms, patient reportsscabs fell off and recur,lesions spreading, andfatigue. For location, patient reportseyelid. For quality, patient reportstender,sore,itchy, andchanging in color. For severity, patient reportsmoderate. For duration, patient reportsstarted: ___and1 months. For timing, patient reportsgradual. For context, patient reportsno known trigger(eczema cream caused burned). For aggravating factors, patient reportsnone. For prior treatments, patient reportsotc topical treatment. The patient is a 19-year-old female presenting with a dry spot on the left eyelid and seeking weight loss medication in pill form. She describes the dryness as progressively worsening over the past month, resembling eczema, but has not experienced similar issues elsewhere except for occasional dryness of the elbow. The patient is also exploring weight loss options and states discomfort with needle-based medications. Raul Smith MD [address] [place], [address], [facility] 04/07/2025 11:19:37 OBGyn Episode No OBEpisode recorded.
[2025-04-28 12:25] LABS: Add Urine Microscopic? YES
[2025-04-28 12:30] LABS: UA Slide Review UA Slide Review Perf
--- NOTE | 2025-04-28 12:37 | CT_ITS ---
WS: [id number] CT ABDOMEN AND PELVIS NONCONTRAST HISTORY: flank pain/hematuria TECHNIQUE: Imaging performed through the abdomen and pelvis. Coronal and sagittal reformats are submitted. All CT scans at [facility] use at least one of these dose optimization techniques: automated exposure control; mA and/or kV adjustment per patient size (includes targeted exams where dose is matched to clinical indication); or iterative reconstruction. DLP: 1378.43 mGy.cm COMPARISON: None available. Lower thorax: Lung bases are clear. Visualized heart is normal. No hiatal hernia. Liver: Low attenuation from hepatic steatosis. Normal size liver. Gallbladder: Normal gallbladder. No pericholecystic fluid or cholelithiasis. No gallbladder wall thickening. Pancreas: Normal size and attenuation. Normal pancreatic duct. No pancreatitis or mass. Spleen: Normal. Adrenal glands: Normal. No mass. Right kidney: Normal size kidney with no mass or hydronephrosis. Left kidney: Normal size kidney with no mass or hydronephrosis. Aorta: Normal abdominal aorta, no aneurysm or atherosclerosis. Areas tiny mesenteric lymph nodes. Some several small lymph nodes in the RIGHT lower quadrant. GI tract: Normal noncontrast imaging of the stomach, small bowel and colon. No obstruction or wall thickening. Normal appendix. Abdominal wall: Negative. No hernia. Pelvis: Normal urinary bladder. Normal appearance of the uterus and ovaries by CT. Osseous structures: Unremarkable. CT/CT kidney stone [id number] IMPRESSION: 1. No renal obstruction or perinephric stranding. 2. Normal appendix. 3. No GI tract obstruction. 4. There are a few very tiny central mesenteric and RIGHT lower quadrant lymph nodes. These can be noted with mesenteric adenitis. No pathologically enlarged nodes.
[2025-04-28 13:21] VITALS: BP 110/70; PULSE 88; RESP 16; O2SAT 99
[2025-04-28 14:23] VITALS: BP 101/67; PULSE 89; RESP 18; TEMP 36.6; O2SAT 99
== END 2025-04-28 14:26 | disposition home or self-care (01) ==
PROVIDERS: Emergency Provider Family Medicine; PCP Family Medicine
DX: I88.0 Nonspecific mesenteric lymphadenitis (principal)
CPT/HCPCS: 36415; 74176; 80053; 81001; 83690; 84703; 85025; 96372; 96374; 96375; 99285; J1885; J2360; J2405; J2919; J7030